=== PATIENT | female | born 1970 | race Caucasian/White ===

== ENCOUNTER 2020-08-05 18:00 | Outpatient (CLI) | payer OTHER ==
[2013-05-28 14:48] VITALS: BMI 36.5
[~2020-08-05 18:00] MED LIST: FERRETTS324 MG PO; GLUCOPHAGE1000 MG PO; LEVOTHROID75 MCG PO; MOTRIN600 MG PO; PERCOCET 10/3251 TA1 PO; VIVELLE-DO1 PATCH.B1 TD; ZOLOFT100 MG PO
== END 2020-08-05 23:59 | disposition home or self-care (01) ==
LOC: D.MAMMO 18:00
PROVIDERS: ATTEND Family Medicine Adult Medicine
DX: Z12.31 Encounter for screening mammogram for malignant neoplasm of breast (principal)